=== PATIENT | female | born 1940 | race Caucasian/White ===

== ENCOUNTER 2016-04-25 11:50 | Observation (INO) | payer MEDICARE ==
[2016-04-25] MEDS ORDERED: IOPAMIDOL 300 (61%) 150 ML VIAL IV ONE (11:51)
[2016-04-25 12:39] LABS: ABSOLUTE NEUTROPHIL COUNT 6.6 K/mm3 (1.8-7.7); BASO % 0.1 % (0.2-1.0); EOS # 0.3 (0.0-0.5); EOS % 3.2 % (0.9-2.9); IMM NEUT # 0.1 K/mm3 (0-0.2); IMM NEUT% 0.7 % (0-1); LYMPH # 1.5 (1.0-4.8); MEAN CELL VOLUME 61.8 fl (81.0-99.0); MEAN CORPUSCULAR HEMOGLOBIN 15.9 pg (27.0-31.0); MEAN CORPUSCULAR HGB CONC 25.7 g/dl (33.0-37.0); MEAN PLATELET VOLUME 9.2 fl (7.4-10.4); MONO # 0.6 (0.0-0.8); MONO % 6.4 % (4-12); NEUT % 72.6 % (43-75); PLATELET COUNT 507 K/mm3 (130-400); RED CELL DISTRIBUTION WIDTH 18.9 % (11.5-14.5)
--- NOTE | 2016-04-25 12:41 | RAD ---
04/25/2016 12:35 PM CHEST - 2 VIEWS History: Hypotension, weakness and shortness of breath. Comparison: None Findings: Two views of the chest are obtained. The lungs demonstrate patchy opacity within the right upper lobe distribution. Remainder the lungs are clear. The cardiomediastinal silhouette is unremarkable.. The osseous structures demonstrate rotator cuff repair on the right but are otherwise intact.. IMPRESSION: Right upper lobe pneumonia. This should be followed to radiographic clearance in 6-8 weeks' time..
[2016-04-25 12:45] LABS: HEMATOCRIT 15.2 % (37.0-47.0); HEMOGLOBIN 3.9 gm/l (12.0-16.0)
[2016-04-25 12:51] LABS: ALB/GLOB RATIO 1.3 (>1.0); ALBUMIN 4.1 gm/dL (3.5-5.7); CALCIUM 9.3 mg/dL (8.6-10.3)
[2016-04-25 13:20] LABS: INR 1.1; PROTHROMBIN TIME 11.7 SECONDS (9.3-11.4)
--- NOTE | 2016-04-25 13:45 | RAD ---
HISTORY: Low back pain. Hypotension. COMPARISON: 11/29/2015 Findings: AP and lateral views of the lumbar spine with AP spot film of the lumbo-sacral junction are obtained. The development and bony structures are normal. There is no fracture, dislocation or destructive lesion. The patient's dextroscoliosis is again noted as seen on prior study. Sagittal alignment is intact. Endplate hypertrophy with osteophyte formation is present along the lower lumbar spine. Facet disease at L4-5 and L5-S1 is again noted, moderate. This has not significantly progressed since prior study. The vertebral body heights are well-preserved. Loss of the normal intervertebral disc height is present at multiple levels though not significantly changed. Vacuum cleft deformity is noted at L3-4. At this crack disease of the abdominal aorta and branch vessels. The sacrum and sacroiliac joints are normal. IMPRESSION: Stable degenerative changes without fracture or dislocation.
--- NOTE | 2016-04-25 13:46 | RAD ---
PELVIS HISTORY: Hypotension and back pain. COMPARISONS: None FINDINGS: Single AP view of the pelvis does not show fracture or dislocation. Phleboliths are present within the pelvis. Degenerative changes of the visualized lumbar spine. Nonspecific, nonobstructive bowel gas pattern overlays the osseous structures. IMPRESSION: No fracture or dislocation.
--- NOTE | 2016-04-25 14:12 | CT ---
ADDENDUM #1 The vessels section of the body of the report should read as follows: Mild atherosclerotic disease including coronary artery calcification. The remainder of the exam stands as is. ORIGINAL REPORT Exam Type: CHEST W/ CON, ABD/PELVIS W/ CON Date and Time: 04/25/2016 1:22 PM Clinical information: Anemia. Abnormal density on recent chest x-ray. Comparison: Plain films earlier on the same day. Technique: Contiguous axial 3 mm images of the chest, abdomen and pelvis were obtained after the uneventful IV ministration 125 mL of Isovue-300. Sagittal and coronal reformations with high resolution lung algorithm images were also obtained at this time. CT DI: 8.2 DLP: 524.3 FINDINGS: LUNG AND LARGE AIRWAYS: Spiculated density is identified within the right upper lobe posteriorly. There may be some cavitation associated with the more anterior superior aspect. This measures approximately 5.6 x 5 point recent centimeters on axial image 24. Portions do abut the posterior pleura. Mild emphysematous changes are present with an upper lobe distribution. Motion artifact does mildly limit assessment. The remainder of the lungs are clear. PLEURA: There may be minimal bilateral effusions. VESSELS: Mild at this crack disease including coronary artery calcification. HEART: normal size. No pericardial effusion. MEDIASTINUM AND GURINDER: Right paratracheal node on image 36 measures 3.1 x 1.3 cm. Right hilar node on image 43 measures 2.2 x 1.9 cm. No other evidence of adenopathy is noted. CHEST WALL AND LOWER NECK: within normal limits. ADENOPATHY: As above. ABDOMEN: LIVER: There may be minimal diffuse fatty infiltration. Focal hypodensity is present along the inferior tip of the liver measuring approximately 1.4 x 1 cm on axial image 116. BILE DUCTS: normal caliber. GALLBLADDER: No calcified gallstones. Normal caliber wall. PANCREAS: Mild prominence of the pancreatic duct measuring 3 to 4 mm. SPLEEN: within normal limits. ADRENALS: within normal limits. KIDNEYS: within normal limits. PELVIS: REPRODUCTIVE ORGANS: Uterus and adnexa are surgically absent. URETERS: within normal limits. BLADDER: Normal BOWEL: Stomach and small bowel are unremarkable. Appendix is not visualized though secondary signs of appendicitis are seen. Diverticulosis is present. A short segment of diverticulitis is identified with pericolonic fat stranding and wall thickening. This measures approximately 4.4 cm on axial image 161. MESENTERIC LYMPH NODES: No enlarged mesenteric lymph nodes. PERITONEUM: no ascites or free air, no fluid collection. VESSELS: Moderate atherosclerotic disease. RETROPERITONEUM: within normal limits. ABDOMINAL WALL: within normal limits. BONES: Multilevel degenerative changes of the spine. No lytic or sclerotic lesions. IMPRESSION: Spiculated lesion is identified within the right upper lobe distribution with adenopathy in the right mediastinum and hilum. Findings represent malignancy till proven otherwise. There may be some cavitation just anterior and superior to this lesion. Short segment diverticulitis without abscess or free air. Tiny bilateral pleural effusions. Degenerative changes of the spine without lytic or sclerotic lesions. Hypodense lesion within the inferior tip of the liver. Benign or malignant entities are possible. Ultrasound could be helpful in further assessment. Incidental findings as above. Findings were called to Dr. Siu at approximately 1407 hours on 04/25/2016.
[2016-04-25 14:14] VITALS: BMI 24.5
[2016-04-25] MEDS ORDERED: PNEUMOCOCCAL 23-VAL P-SAC VAC 0.5 ML VIAL SUB-Q V ONE (14:34)
[2016-04-25] MEDS ORDERED: SODIUM CHLORIDE 0.9% FLUSH 10 ML ONE (14:58)
[2016-04-25] MEDS ORDERED: SODIUM CHLORIDE 0.9% 100 ML IV ONE (14:58)
[2016-04-25] MEDS ORDERED: BLOOD Y PLUMSET W/CASSETTE ONE ×2 (14:58→17:25)
[2016-04-25] MEDS ORDERED: SODIUM CHLORIDE 0.9% 500 ML IV PRN (15:05)
[2016-04-25] MEDS ORDERED: BISACODYL 5 MG TABLET.EC PO PRN (15:06)
[2016-04-25] MEDS ORDERED: MAGNESIUM HYDROXIDE 30 ML UDCUP PO PRN (15:06)
[2016-04-25] MEDS ORDERED: MENTHOL/CETYLPYRD 1 EACH LOZENGE PO PRN (15:06)
[2016-04-25] MEDS ORDERED: BISACODYL 10 MG SUP PR PRN (15:06)
[2016-04-25] MEDS ORDERED: ACETAMINOPHEN 325 MG TABLET PO PRN (15:06)
[2016-04-25] MEDS ORDERED: SODIUM CHLORIDE 0.9% 100 ML IV PRN (15:06)
[2016-04-25] MEDS ORDERED: BLISTEX LIPSTICK 1 EACH TP PRN (15:06)
[2016-04-25 15:07] LABS: HYPOCHROMIA 3+; PLATELET ESTIMATE INCREASED (NORMAL)
[2016-04-25 15:08] LABS: ANISOCYTOSIS 2+
[2016-04-25] MEDS ORDERED: PANTOPRAZOLE 40 MG TABLET DR PO SCH (15:15)
--- NOTE | 2016-04-25 16:59 | HP ---
KOSTA MULLINS [id number] : 1940 DATE OF ADMISSION: April 25, 2016 IDENTIFICATION: Ms. Mullins is a 75-year-old followed by Dr. Smith. CHIEF COMPLAINT: Shortness of breath. HISTORY OF PRESENT ILLNESS: Ms. Mullins went to see Dr. Umana yesterday and after walking into the office, she was extremely short of breath and her blood pressure was checked. It was low. She was kept there in the office until her blood pressure had recovered. Today she followed up with Luiza Mcguire and had hemoglobin checked in the office which was quite low. She was then referred to the emergency department. She does report several months even up to a year and a half of increasing symptoms of dyspnea with exertion, loss of energy, sometimes faintness, and dark stools. On evaluation in the emergency department, she was found to have a hemoglobin of 3.9, hematocrit 15.2%. She was referred to the hospitalist service for transfusion. REVIEW OF SYSTEMS: HEENT: She has been faint. RESPIRATORY: Dyspnea with exertion. CARDIAC: No chest pain or palpitations. GASTROINTESTINAL: Chronic dyspepsia for which she takes famotidine. Dark stools for the last year. GENITOURINARY: No symptoms. MUSCULOSKELETAL: Chronic back and hip pain from spinal stenosis and also hand numbness from cervical spinal stenosis. CONSTITUTIONAL: No fever or chills. PAST MEDICAL HISTORY: 1. Hypertension. 2. Hypothyroidism. 3. Spinal stenosis. 4. Gastroesophageal reflux disease. She did have endoscopy but many ears ago when she had young children. PAST SURGICAL HISTORY: 1. Salivary gland surgery. 2. Appendectomy. 3. Hysterectomy. 4. Shoulder repair. 5. Colonoscopy approximately one year ago. She was told it was normal. ALLERGIES: Reported to [facility]. MEDICATIONS: 1. Felodipine. 2. Hydrochlorothiazide. 3. Levothyroxine. 4. Famotidine. HABITS: She is a former smoker with a 30-year history of smoking. Quit approximately 13 years ago. She does drink alcohol on a daily basis, approximately five shots a day. She has stopped previously and not had withdrawal symptoms. SOCIAL HISTORY: She is retired from the school district. Lives in [place] with her . FAMILY HISTORY: Positive for hypertension. PHYSICAL EXAMINATION: GENERAL: This is a pale elderly woman. She does not appear in acute distress. VITAL SIGNS: Temperature 98.5 degrees Fahrenheit, pulse 83, blood pressure 121/48, respiratory rate 16, oxygen saturation 92% on room air. HEENT: Atraumatic. Pupils are equal, round and reactive. Extraocular muscles are intact. Oropharynx is moist. CHEST: Clear to auscultation. HEART: Is regular, with 2/6 systolic murmur. ABDOMEN: Is soft, mild epigastric tenderness. No guarding or rebound. Normal bowel tones. No organomegaly. EXTREMITIES: Good dorsalis pedis pulses. No cyanosis, clubbing or edema. NEUROLOGIC: Alert and oriented. No focal deficits. LABORATORY DATA: White blood cell count 9.1, hemoglobin and hematocrit 3.9 and 15.2, indices are microcytic, platelets 507. INR 1.10, sodium 130, potassium 4.0, chloride 95, CO2 24, BUN14, creatinine 1.0, glucose 108. Liver enzymes are normal. RADIOLOGY: 1. Chest CT scan spiculated lesion in the right upper lobe with adenopathy in the right mediastinum and hilum. 2. Abdominal and pelvic CT, diverticulosis, degenerative spinal changes, and a hypodense lesion in the inferior tip of the liver. ASSESSMENT: Ms. Mullins is a 75-year-old with severe anemia which is chronic and been developing for quite some time by history. She likely has gastrointestinal blood loss related to alcoholic gastritis, but this may also be related to the findings on pulmonary CT scan likely to be lung cancer. PLAN: 1. Refer to observation. 2. Transfuse two units of packed red blood cells then recheck hemoglobin and hematocrit and symptoms. 3. If stable, possible discharge later this evening with further outpatient workup for esophagogastroduodenoscopy and followup on CT findings. 4. Continue outpatient medications. 5. Oral pantoprazole. 6. Venous thrombosis risk is low.
[2016-04-25 20:41] VITALS: BP 139/42
[2016-04-25] MEDS ORDERED: DOCUSATE SODIUM 100 MG CAPSULE PO SCH (21:00)
[2016-04-25 21:25] LABS: HEMATOCRIT 20.7 % (37.0-47.0)
[2016-04-25 21:34] LABS: HEMOGLOBIN 6.2 gm/l (12.0-16.0)
[2016-04-26] MEDS ORDERED: HYDROCHLOROTHIAZIDE 25 MG TABLET PO SCH (09:00)
[2016-04-26] MEDS ORDERED: LEVOTHYROXINE SODIUM 100 MCG TABLET PO SCH (09:00)
[2016-04-26] MEDS ORDERED: FELODIPINE 5 MG PO SCH (09:00)
== END 2016-04-25 21:57 | disposition home or self-care (01) ==
LOC: ED 11:50 → INTOOBSV 13:23 → ICU 13:23
PROVIDERS: ADMIT Family Medicine; ATTEND Family Medicine
PROC: 30233N1 Transfusion of Nonautologous Red Blood Cells into Peripheral Vein, Percutaneous Approach (ICD-10-PCS; principal; 2016-04-25)
DX: D50.0 Iron deficiency anemia secondary to blood loss (chronic) (principal); J18.9 Pneumonia, unspecified organism; I10 Essential (primary) hypertension; E03.9 Hypothyroidism, unspecified; M48.00 Spinal stenosis, site unspecified; K21.9 Gastro-esophageal reflux disease without esophagitis; Z87.891 Personal history of nicotine dependence; Z23 Encounter for immunization; J90 Pleural effusion, not elsewhere classified; K29.21 Alcoholic gastritis with bleeding
CPT/HCPCS: 36430; 90732; 85025; 80053; 85014; 85018; 85610; 36415; 71020; 72100; 72170; 74177; 71260; 86920; 86922; 86921; 86901; 86850 ×3; 99284; 93005; 99285; A9270; J7050 ×2; Q9967; P9016 ×2

== ENCOUNTER 2016-05-06 08:56 | Day surgery (SDC) | payer MEDICARE ==
[2016-05-06] MEDS ORDERED: LACTATED RINGERS 1,000 ML ONE (09:01)
[2016-05-06] MEDS ORDERED: IV START KIT ONE (09:02)
[2016-05-06] MEDS ORDERED: LACTATED RINGERS 1,000 ML IV SCH (10:30)
[2016-05-06] MEDS ORDERED: PROPOFOL 20 ML IV ONE (10:54)
[2016-05-06 15:41] LABS: HELICOBACTER PYLORII DETECTION NEGATIVE (NEGATIVE)
--- NOTE | 2016-05-08 09:30 | SURGPATH ---
[facility] [address] [place] [id number] Patient Name: KOSTA MULLINS MR#: [id number] : 1940 Gender: F Specimen #: [id number] Collected: 05/06/2016 Received: 05/07/2016 Reported: 05/08/2016 Submitting Phys: MISTY AMARO Copy [facility] Phys[facility] G[facility]AG[facility] Soila Clinical History / Pre-Operative Diagnosis: ANEMIA Specimen Source / Surgical Procedure Performed: #1-DUODENAL; #2-ANTRAL; #3-GE JUNCTION Interpretation: 1. DUODENUM, BIOPSY: - HYPERPLASTIC POLYP. - NO EVIDENCE OF SIGNIFICANT INFLAMMATION OR MALIGNANCY. 2. GASTRIC ANTRUM, BIOPSY: - MILD REACTIVE GASTROPATHY. - NO MICROORGANISMS IDENTIFIED WITH ROUTINE STAINING. - NO EVIDENCE OF SIGNIFICANT INFLAMMATION, INTESTINAL METAPLASIA, OR MALIGNANCY. 3. GE JUNCTION, BIOPSY: - SQUAMOUS MUCOSA WITH ASSOCIATED GLANDULAR MUCOSA SHOWING MILD CHRONIC NONSPECIFIC INFLAMMATION. - NO EVIDENCE OF INTESTINAL METAPLASIA OR MALIGNANCY. Electronically Signed Out Jeffrey Benjamin M.D., Ph.D. Gross Description: #1 The specimen is received in a formalin filled container labeled with the patient's name and "duodenal". Two dai biopsies are 0.3 and 0.4 cm. Totally embedded in cassette #1. #2 The specimen is received in a formalin filled container labeled with the patient's name and "antral". Two dai biopsies are 0.3 and 0.6 cm. Totally embedded in cassette #2. #3 The specimen is received in a formalin filled container labeled with the patient's name and "GE junction". Two perez biopsies are 0.3 and 0.5 cm. Totally embedded in cassette #3. Reggie Palomares PKody. Microscopic Description: 1. Examination of multiple levels from the duodenum biopsy shows two fragments duodenum and gastric mucosa with dilated and hyperplastic glands. There is no evidence of significant inflammation or malignancy. 2. Examination of multiple levels from gastric antrum biopsy shows two fragments of gastric mucosa with superficial smooth muscle proliferation associated with dilated and tortuous glands. The lamina propria is otherwise not expanded. No microorganisms identified with routine staining. There is no evidence of significant inflammation, intestinal metaplasia, or malignancy. 3. Examination of multiple levels from the GE junction biopsy shows two fragments of squamous mucosa with associated glandular mucosa with a mild chronic nonspecific inflammatory cell infiltrate. There is no evidence of intestinal metaplasia or malignancy. 1: 01051 2: 97549 3: 28239 K31.7 K31.9 K20.9
== END 2016-05-06 10:57 | disposition home or self-care (01) ==
LOC: SDC 08:56
PROVIDERS: ATTEND Surgery
PROC: 0DB58ZX Excision of Esophagus, Via Natural or Artificial Opening Endoscopic, Diagnostic (ICD-10-PCS; principal; 2016-05-06)
PROC: 0DB98ZX Excision of Duodenum, Via Natural or Artificial Opening Endoscopic, Diagnostic (ICD-10-PCS; 2016-05-06)
PROC: 0DB68ZX Excision of Stomach, Via Natural or Artificial Opening Endoscopic, Diagnostic (ICD-10-PCS; 2016-05-06)
DX: D50.0 Iron deficiency anemia secondary to blood loss (chronic) (principal); K29.70 Gastritis, unspecified, without bleeding; K29.80 Duodenitis without bleeding; Z83.71 Family history of colonic polyps; E03.9 Hypothyroidism, unspecified; Z86.010 Personal history of colon polyps; R59.1 Generalized enlarged lymph nodes; Z88.2 Allergy status to sulfonamides; Z87.891 Personal history of nicotine dependence; Z86.19 Personal history of other infectious and parasitic diseases; R91.8 Other nonspecific abnormal finding of lung field
CPT/HCPCS: 87081; 43239; J7120